=== PATIENT | male | born 1970 | race Caucasian/White ===

== ENCOUNTER → 2017-09-09 07:44 | Outpatient (CLI) | payer OTHER, SELFPAY ==
--- NOTE | 2017-09-09 07:50 | US_ITS ---
US abdomen complete COMPARISON: CT scan abdomen and pelvis 04/26/2010 HISTORY: Right upper right lower quadrant pain TECHNIQUE: Ultrasound abdomen complete FINDINGS: The pancreas is grossly normal in overall size and shows increased echogenicity suggesting fatty infiltration. The liver is normal in size and show scattered areas of fatty infiltration. The gallbladder is normal size and there may be a trace amount of biliary sludge but there are no gallstones seen. The common bile duct is normal caliber. Scanning in the area of the right lower quadrant shows ill-defined areas of increased echogenicity with ill-defined shadowing suggesting air within the bowel. The spleen is normal. The left kidney measures 9.6 x 5.7 x 6.3 cm. and appears normal with no hydronephrosis. Right kidney measures 11.0 x 4.1 x 5.6 cm. and appears normal as well. IMPRESSION: Trace amount biliary sludge along with diffuse fatty liver and possible that infiltration of the pancreas as well
== END ==
PROVIDERS: Family Provider Internal Medicine; PCP Internal Medicine; Visit Provider Internal Medicine
DX: R10.11 Right upper quadrant pain (principal); R10.31 Right lower quadrant pain
CPT/HCPCS: 76700

== ENCOUNTER 2020-10-29 15:01 | Emergency (ER) | payer OTHER, SELFPAY ==
[2020-10-29 15:09] VITALS: BP 128/87; PULSE 71; RESP 18; TEMP 36.6; O2SAT 96; BMI 34.7
--- NOTE | 2020-10-29 15:20 | HMH.EDUTC ---
[facility] [place] Disposition Clinical Impression: Sinusitis Qualifiers: Sinusitis location: unspecified location Chronicity: acute Recurrence: non-recurrent Qualified Code(s): J01.90 - Acute sinusitis, unspecified Disposition: Home, Self-Care Condition on Discharge: Good Instructions: DI for Sinusitis Additional Instructions: Drink plenty of fluids. Take tylenol or ibuprofen for pain or fever. Take the medications as directed. Follow up with your regular doctor. GO TO THE ER FOR ANY WORSENING SYMPTOMS Prescriptions: Amoxicillin/Potassium Clav [Augmentin 875-125 Tablet] 1 tab PO Q12H 10 Days #20 tab Transmission Status: Received by [id number] predniSONE [Prednisone 20mg Tab] 20 mg PO BID 4 Days #8 tab [facility]: [id number] Benzonatate [Tessalon Perle 100mg Cap] 100 mg PO TIDP PRN #30 cap PRN Reason: Cough Transmission Status[facility] Referrals: Jackson Chen [Primary Care Provider] - Time of Disposition: 15:38 Medical Decision Making - Medical Records Medical records reviewed: No: I reviewed the patient's medical records. - Campbell Inquiry Pt receiving controlled substance: No Vital Signs: 10/29/20 15:09 10/29/20 15:30 Temperature 97.9 F 97.9 F Temperature Source Oral Pulse Rate 71 Pulse Rate [Left] 71 Respiratory Rate 18 18 Blood Pressure 128/87 Blood Pressure [Right Arm] 128/87 Blood Pressure Mean [Right Arm] 100 02 Sat by Pulse Oximetry 96 Orders (Tests/Meds): ED MEDICATIONS Discontinued Medications Generic Name Dose Route Start Last Admin Trade Name Freq PRN Reason Stop Dose Admin Ceftriaxone Sodium 1 gm 10/29/20 15:20 10/29/20 15:26 Ceftriaxone 1gm Vial IM 10/29/20 15:21 1 gm ONCE ONE Administration Protocol Lidocaine HCl 0 ml 10/29/20 15:20 10/29/20 15:26 Lidocaine 1% 5ml Pf Vial IM 10/29/20 15:21 2.1 ml ONCE ONE Administration Methylprednisolone Sodium Succinate 125 mg 10/29/20 15:20 10/29/20 15:25 Methylprednisolone Sod Succ 125mg Vial IM 10/29/20 15:21 125 mg ONCE ONE Administration [facility] [place] HPI - General Stated complaint: SINUS PAIN,FACIAL Time Seen by Provider: 10/29/20 15:25 Mode of Arrival: Ambulatory Source of Information: Patient Limitations: No Limitations Description of Symptoms (Recalled from Triage Doc. by RN): Pt c/o sinus pressure under his eyes. HEENT Symptoms (Recalled from RN notes): No Resp Symptoms (Recalled from RN notes): Yes Skin Symptoms (Recalled from RN notes): No MS Symptoms (Recalled from RN notes): No Functional Status (Recalled from RN notes): wnl - History of Present Illness Provider Complaint: He states that he has had facial pressure and sinus pressure for the past 3 days. He has also had right ear pain with it. He denies any fever or chills. He states that he usually gets a sinus infection every spring and that what he thinks is going on now. He has been vaccinated against covid-19. - Related Data Previous Rx's Medication Instructions Recorded Azithromycin [Z-Alejandro 250mg Tab*] 250 mg PO UD DOSE PK #6 tab 06/09/19 Oseltamivir Phosphate [Tamiflu 75 mg PO BID #10 cap 06/09/19 75mg Capsule] Cyclobenzaprine HCl 5 mg PO Q8H PRN 10 Days #30 tab 08/23/19 [Cyclobenzaprine 5mg Tab] methylPREDNISolone [Medrol 4mg 4 mg PO DIRECTED #21 tab 08/23/19 tab] Amoxicillin/Potassium Clav 1 tab PO Q12H 10 Days #20 tab 10/29/20 [Augmentin 875-125 Tablet] Benzonatate [Tessalon Perle 100mg 100 mg PO TIDP PRN #30 cap 10/29/20 Cap] predniSONE [Prednisone 20mg 20 mg PO BID 4 Days #8 tab 10/29/20 Tab] Allergies Allergy/AdvReac Type Severity Reaction Status Date / Time No Known Allergies Allergy Verified 10/29/20 15:16 - Worker's Comp Is this a Worker's Comp case?: No [facility] History - Hepatitis A Screen Drug use history?: No High risk sexual behaviors?: No History of sexually transmitted infectio
[2020-10-29 15:30] VITALS: BP 128/87; PULSE 71; RESP 18; TEMP 36.6; O2SAT 96
== END 2020-10-29 15:42 | disposition home or self-care (01) ==
PROVIDERS: Emergency Provider Nurse Practitioner Family; PCP Internal Medicine
DX: J01.90 Acute sinusitis, unspecified (principal)
CPT/HCPCS: 90471; 99202; G0463

== ENCOUNTER 2021-05-10 11:42 | Emergency (ER) | payer OTHER, SELFPAY ==
[2021-05-10 12:25] VITALS: BP 140/91; PULSE 79; RESP 18; TEMP 36.8; O2SAT 97; BMI 36.3
--- NOTE | 2021-05-10 13:11 | HMH.EDUTC ---
[facility] [place] Disposition Clinical Impression: Bronchitis Sinusitis Qualifiers: Sinusitis location: unspecified location Chronicity: unspecified Qualified Code(s): J32.9 - Chronic sinusitis, unspecified Disposition: Home, Self-Care Condition on Discharge: Good Instructions: Sore Throat, Sinusitis, Acute Bronchitis, DI for Sinusitis Additional Instructions: ? Start antibiotic today. Be sure to complete entire prescription even if feeling better ? Monitor temp. Tylenol every 4 hours as needed and / or ibuprofen every 6 hours as needed ( As long as your primary care physician has told you that it ok to take both. For fever/aches/pains ER if no less than 101 despite Tylenol or Motrin ? Humidifier/vaporizer or hot steamy shower ? Inhaler every 4-6 hours as needed like we discussed. If unsure how to use it, ask pharmacist to demonstrate how. Should help open airways and improve cough, wheezing, and shortness of breath Follow up IMMEDIATELY for new or worsening of symptoms OR no noticeable improvement over the next 48-72 hours. 911 immediately for any life threatening symptoms such as chest pain or difficulty breathing Prescriptions: Benzonatate [Benzonatate 100mg cap] 100 mg PO Q8HP PRN #15 cap PRN Reason: Cough Transmission Status: Received by [facility] Azithromycin [Z-Alejandro 250mg Tab*] 250 mg PO UD DOSE PK #6 tab Transmission Status: Re[facility] by [facility] Referrals: Jackson Chen [Primary Care Provider] - As needed Forms: Work/School Release Time of Disposition: 13:45 Medical Decision Making - Campbell Inquiry Pt receiving controlled substance: No Campbell was queried for this patient: No Vital Signs: 05/10/21 12:25 05/10/21 13:34 Temperature 98.3 F 98.3 F Temperature Source Oral Pulse Rate 79 Pulse Rate [Right Brachial] 79 Respiratory Rate 18 18 Blood Pressure 140/91 H Blood Pressure [Right Arm] 140/91 H Blood Pressure Mean [Right Arm] 107 Blood Pressure Source [Right Arm] Automatic Cuff Blood Pressure Position [Right Arm] Sitting 02 Sat by Pulse Oximetry 97 Oxygen Delivery Method Room Air Orders (Tests/Meds): ED MEDICATIONS Discontinued Medications Generic Name Dose Route Start Last Admin Trade Name Freq PRN Reason Stop Dose Admin Ceftriaxone Sodium 1 gm 05/10/21 13:18 05/10/21 13:35 Ceftriaxone 1gm Vial IM 05/10/21 13:19 1 gm ONCE ONE Administration Lidocaine HCl 0 ml 05/10/21 13:18 05/10/21 13:35 Lidocaine 1% 5ml Pf Vial IM 05/10/21 13:19 2 ml ONCE ONE Administration Methylprednisolone Sodium Succinate 125 mg 05/10/21 13:18 05/10/21 13:35 Methylprednisolone Sod Succ 125mg Vial IM 05/10/21 13:19 125 mg ONCE ONE Administration [facility] [place] HPI - General Stated complaint: cough,sore throat Time Seen by Provider: 05/10/21 13:11 Mode of Arrival: Ambulatory Source of Information: Patient Limitations: No Limitations Description of Symptoms (Recalled from Triage Doc. by RN): PATIENT C/O PRODUCTIVE COUGH AND CHEST CONGESTION HEENT Symptoms (Recalled from RN notes): No Resp Symptoms (Recalled from RN notes): Yes Skin Symptoms (Recalled from RN notes): No MS Symptoms (Recalled from RN notes): No Functional Status (Recalled from RN notes): WNL - History of Present Illness Provider Complaint: Patient states that he has been having cough and congestion and at times he is able to cough up some mucous States that he gets bronchitis about this time every year and if he dont get it treated it turns into pneumonia on him so today when he was having the sinus pressure, drainage in back of his throat and cough he came in to get checked - Related Data Previous Rx's Medication Instructions Recorded Azithromycin [Z-Alejandro 250mg Tab*] 250 mg PO UD DOSE PK #6 tab 05/10/21 Benzonatate [Benzonatate 100mg 100 mg PO Q8HP PRN #15 cap 05/10/21 cap] Allergies Allergy/AdvReac Type Severity Reaction Status Date / Time No Known Allergies Allergy Vj
[2021-05-10 13:34] VITALS: BP 140/91; PULSE 79; RESP 18; TEMP 36.8; O2SAT 97
== END 2021-05-10 14:04 | disposition home or self-care (01) ==
PROVIDERS: Emergency Provider Nurse Practitioner; PCP Internal Medicine
DX: J20.9 Acute bronchitis, unspecified (principal); J32.9 Chronic sinusitis, unspecified
CPT/HCPCS: 96372; 99202; G0463

== ENCOUNTER → 2021-05-12 10:13 | Outpatient (CLI) | payer OTHER, SELFPAY | PROVIDERS: PCP Internal Medicine; Visit Provider Nurse Practitioner Family | DX: U07.1 COVID-19 (principal) | CPT/HCPCS: C9803; U0003; U0005 ==

== ENCOUNTER → 2021-05-17 07:56 | Outpatient (CLI) | payer OTHER, SELFPAY ==
[2021-05-17] VITALS (16 sets, daily range): BP systolic 132–169; BP diastolic 70–99; PULSE 67–77; RESP 18; O2SAT 94–98
== END ==
PROVIDERS: PCP Internal Medicine; Visit Provider Internal Medicine
DX: U07.1 COVID-19 (principal); Z23 Encounter for immunization
CPT/HCPCS: 96365

== ENCOUNTER → 2021-12-11 11:10 | Outpatient (CLI) | payer OTHER, SELFPAY ==
--- NOTE | 2021-12-11 11:14 | XR_ITS ---
FINAL REPORT CLINICAL HISTORY: BILAT.HIP PAIN FINDINGS: SINGLE VIEW PELVIS: A single view of the pelvis was obtained. There is no acute fracture or dislocation. Vizualized joint spaces are normally aligned. Soft tissues are unremarkable. IMPRESSION: No acute bony abnormality. Reviewed, Interpreted and Dictated by Karlo Hutton III, MD Transcribed by Elizabeth Fraser Authenticated and [facility]
--- NOTE | 2021-12-11 11:14 | XR_ITS ---
FINAL REPORT CLINICAL HISTORY: LOW BACK PAIN FINDINGS: LUMBAR SPINE 5 views of the lumbar spine were obtained. There is no evidence of fracture or dislocation. There is straightening of the normal lumbar curvature which could be due to positioning or muscle spasm. The vertebral alignment is normal. There is mild and moderate degenerative change with multilevel vertebral osteophytes and facet arthropathy. No paraspinous soft tissue abnormalities identified. IMPRESSION: Mild and moderate degenerative change Reviewed, Interpreted and Dictated by Karlo Hutton III, MD Transcribed by Elizabeth Fraser Authenticated and . [facility]
[2021-12-11 12:48] LABS: Basophils % 0.4 % (0.1-2.0); Eosinophils # 0.1 K/mm3 (0.0-0.4); Eosinophils % 1.3 % (0.1-12.0); Hematocrit 48.9 % (42.0-52.0); Hemoglobin 17.2 g/dL (14.1-18.0); Lymphocytes # 2.9 K/mm3 (0.7-4.5); Lymphocytes % 34.5 % (10-50); Mean Corpuscular HGB Conc 35.2 g/dL (31.8-35.4); Mean Corpuscular Volume 85.2 fl (80-94); Mean Platelet Volume 7.3 fl (7.4-10.4); Monocytes # 0.5 K/mm3 (0.1-1.0); Monocytes % 5.6 % (1.7-9.3); Neutrophils # 4.8 K/mm3 (1.8-7.8); Neutrophils % 58.2 % (37.0-80.0); Platelet Count 222 K/mm3 (142-424); Red Blood Count 5.74 M/mm3 (4.60-6.20); Red Cell Distribution Width 13.1 % (11.5-17.5); White Blood Count 8.3 K/mm3 (4.8-10.8)
[2021-12-11 13:24] LABS: Chloride 106 mmol/L (98-107); Potassium 4.2 mmoL/L (3.5-5.1); Sodium 140 mmol/L (136-145)
[2021-12-11 13:26] LABS: Alanine Aminotransferase 43 U/L (12-78); Aspartate Amino Transferase 38 U/L (17-59); Blood Urea Nitrogen 18 mg/dl (9-20); Estimated Glomerular Filt Rate 88 ml/min (>60); GFR (African American) 107 ML/MIN (>60)
[2021-12-11 13:27] LABS: Albumin Level 4.4 g/dl (3.5-5.0); Albumin/Globulin Ratio 1.8 (1.1-1.8); Alkaline Phosphatase 93 U/L (38-126); Anion Gap 15.2 mEq/L (5-15); Carbon Dioxide 23 mmol/L (22.0-30.0); Chol/HDL Ratio 2.8 (1-3.5); Cholesterol 159 mg/dl (140-200); Globulin 2.4 g/dL (1.3-3.2); Glucose 112 mg/dl (74-100); HDL Cholesterol 57 mg/dl (40-60); Total Protein,Serum 6.8 g/dl (6.3-8.2); Triglycerides 136 mg/dl (30-150); VLDL Cholesterol 27 mg/dL (0-40)
[2021-12-11 13:38] LABS: Direct LDL Cholesterol 77.38 mg/dL (100-129)
[2021-12-11 14:05] LABS: Prostate Specific Ag Screen 0.7 ng/ml (0.0-4.0)
== END ==
PROVIDERS: PCP Internal Medicine; Visit Provider Internal Medicine
DX: M54.50 Low back pain, unspecified (principal); M25.552 Pain in left hip; M25.551 Pain in right hip; E78.5 Hyperlipidemia, unspecified; E66.09 Other obesity due to excess calories; Z82.49 Family history of ischemic heart disease and other diseases of the circulatory system; Z83.3 Family history of diabetes mellitus; Z12.5 Encounter for screening for malignant neoplasm of prostate
CPT/HCPCS: 72110; 72170; 80053; 80061; 85025; G0103

== ENCOUNTER 2022-11-30 14:38 | Emergency (ER) | payer OTHER, SELFPAY ==
[2022-11-30 14:39] VITALS: BP 131/86; PULSE 89; RESP 20; TEMP 37; O2SAT 99; BMI 36.1
--- NOTE | 2022-11-30 15:14 | EXP.UTC ---
Discharge Plan Disposition Patient Disposition: Home, Self-Care Condition: Good Prescriptions Prescriptions: New azithromycin [azithromycin] 250 mg tablet 250 mg PO DIRECTED Qty: 6 0RF Rx Instructions: Take two (2) tablets on day #1, then one (1) tablet day #2 thru #5 Referrals Follow up/Referrals: Jackson Chen MD [Primary Care Provider] - See instructions Activity Restrictions/Add. Instructions Additional Instructions/Restrictions: Start antibiotic today. Be sure to complete entire prescription even if feeling better Tylenol and ibuprofen as needed for pain or fever Humidifier/vaporizer/hot steamy shower Follow-up with primary care. Follow-up immediately in the ER of the [facility] for new or worsening symptoms or no noticeable improvement over the next 48-72 hours. Stop smoking Inhaler every 4-6 hours as needed. Should help open airways improved cough, wheezing, shortness of breath Clinical Impressions Clinical Impression: Bronchitis Instructions Patient Instructions: DI for Acute Bronchitis Discharge [facility] [facility] [place] HPI General Stated complaint: Deep cough, back pain, chest congestion Mode of Arrival: Ambulatory Source of Information: Patient Limitations: No Limitations Time Seen by Provider: 11/30/22 15:14 Description of Symptoms (Recalled from Triage Doc. by RN): productive cough for about 2 weeks HEENT Symptoms (Recalled from RN notes): Yes Resp Symptoms (Recalled from RN notes): No Skin Symptoms (Recalled from RN notes): No MS Symptoms (Recalled from RN notes): No Functional Status (Recalled from RN notes): n/a History of Present Illness Provider Complaint: 51 yr old male presents for coughing up thick green sputum, has completed a round of amoxicillin and steroids Related Data Previous Rx's Medication Instructions Recorded azithromycin 250 mg tablet 250 mg PO DIRECTED #6 tabs 11/30/22 Allergies Allergy/AdvReac Type Severity Reaction Status Date / Time No Known Allergies Allergy Verified 11/30/22 14:59 Worker's Comp Is this a Worker's Comp case?: No [facility] Disclaimer: The information contained in this section may have been updated after the patient was seen, as this information can be updated by other users. 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 second hand exposure: No alcohol intake: never current occupational status: other Travel in the last 8 weeks: None ROS Obtained: Yes All systems reviewed & no additional complaints except as documented Constitutional Constitutional: Reports system reviewed and no additional complaints, except as documented and Reports as per HPI Eyes Eyes: Reports system reviewed and no additional complaints, except as documented ENT Ears, Nose, Mouth, and Throat: Reports system reviewed and no additional complaints, except as documented, Reports as per HPI, Reports nasal congestion, Reports nasal discharge and Reports post nasal drip Cardiovascular Cardiovascular: Reports system reviewed and no additional complaints, except as documented Respiratory Respiratory: Reports system reviewed and no additional complaints, except as documented, Reports as per HPI, Reports change in phlegm color, Reports chest congestion and Reports cough Musculoskeletal Musculoskeletal: Reports system reviewed and no additional complaints, except as documented Integumentary/Breasts Skin/Breast: Reports system reviewed and no additional complaints, except as documented Neurologic Neurologic: Reports system reviewed and no additional complaints, except as documented Endocrine Endocrine: Reports system reviewed and no additional complaints, except as documented Hematologic/Lymphatic Henatologic/Lymphatic: Reports system reviewed and no additional complaints, except as documented Allergic/Immunologic Allergic/Immunologic: Reports system reviewed and no additional complaints
[2022-11-30 15:27] VITALS: BP 131/86; PULSE 89; RESP 20; TEMP 37; O2SAT 99
== END 2022-11-30 15:27 | disposition home or self-care (01) ==
PROVIDERS: Emergency Provider Nurse Practitioner Family; PCP Internal Medicine
DX: J20.9 Acute bronchitis, unspecified (principal)
CPT/HCPCS: 96372; 99212; 99214; G0463

== ENCOUNTER 2022-12-08 16:06 | Emergency (ER) | payer OTHER, SELFPAY ==
[2022-12-08 16:07] VITALS: BP 134/91; PULSE 77; RESP 16; TEMP 36.8; O2SAT 96; BMI 34.8
--- NOTE | 2022-12-08 16:16 | XR_ITS ---
PROCEDURE INFORMATION: Exam: XR Thoracic Spine Exam date and time: 12/08/22 04:15 PM Age: 52 years old Clinical indication: Pain in thoracic spine; Other: Coughing leading to back pain; Additional info: Cough TECHNIQUE: Imaging protocol: Radiologic exam of the thoracic spine. Views: 3 views. COMPARISON: CR XR CHEST 2V 12/08/22 04:13 PM FINDINGS: Bones/joints: Degenerative changes. No acute fracture. Normal alignment. Soft tissues: Unremarkable. IMPRESSION: No acute findings.
--- NOTE | 2022-12-08 16:16 | XR_ITS ---
PROCEDURE INFORMATION: Exam: XR Chest Exam date and time: 12/08/22 04:13 PM Age: 52 years old Clinical indication: Patient HX: Cough since November 18. TECHNIQUE: Imaging protocol: Radiologic exam of the chest. Views: 2 views. COMPARISON: CR XR CHEST 2V 06/10/19 10:21 PM FINDINGS: Lungs: Unremarkable. No consolidation. Pleural spaces: Unremarkable. No pleural effusion. No pneumothorax. Heart/Mediastinum: Unremarkable. No cardiomegaly. Bones/joints: Unremarkable. IMPRESSION: No acute findings.
--- NOTE | 2022-12-08 16:31 | EXP.UTC ---
Discharge Plan Disposition Patient Disposition: Home, Self-Care Condition: Good Prescriptions Prescriptions: New prednisone 10 mg tablet 10 mg PO DIRECTED 9 Days Qty: 21 0RF Rx Instructions: Take 4 tablets daily for 3 days, then take 2 tablets daily for 3 days, then take 1 tablet daily for 3 days, then stop. benzonatate [benzonatate] 100 mg capsule 100 mg PO TIDP PRN (Reason: Cough) Qty: 30 0RF promethazine-DM 6.25-15 mg/5 mL Syrup 5 ml PO Q6H PRN (Reason: Cough) Qty: 240 0RF cefdinir 300 mg capsule 300 mg PO BID Qty: 20 0RF No Action azithromycin [azithromycin] 250 mg tablet 250 mg PO DIRECTED Qty: 6 0RF Rx Instructions: Take two (2) tablets on day #1, then one (1) tablet day #2 thru #5 Referrals Follow up/Referrals: Jackson Chen MD [Primary Care Provider] - See instructions Activity Restrictions/Add. Instructions Additional Instructions/Restrictions: Drink plenty of fluids. Take tylenol for pain or fever. Take the medications as directed. Follow up with your regular doctor. GO TO THE ER FOR ANY WORSENING SYMPTOMS Don't start the oral steroids until tomorrow, since you had the shot here today. The cough medication (promethazine dm) will make you drowsy, so don't drive or operate heavy machinery after taking it. It is more so that you can take it at bedtime and no cough for a few hours so you can sleep. The tessalon perles (benzonatate) are for your cough and they should not make you drowsy. Most people can take tessalon perles during the day to help with their cough. Clinical Impressions Clinical Impression: Acute bronchitis, Sinusitis Instructions Patient Instructions: Sinusitis, DI for Sinusitis, DI for Acute Bronchitis Discharge ED Provider: Rodríguez Hobson [facility] General Stated complaint: cough, phys refer to get Xrays Mode of Arrival: Ambulatory Source of Information: Patient Limitations: No Limitations Time Seen by Provider: 12/08/22 16:30 Description of Symptoms (Recalled from Triage Doc. by RN): States Dr. Chen' office sent him here for a chest and back xray. Complaint of being sick for 20 days. HEENT Symptoms (Recalled from RN notes): Yes Resp Symptoms (Recalled from RN notes): No Skin Symptoms (Recalled from RN notes): No MS Symptoms (Recalled from RN notes): No Functional Status (Recalled from RN notes): wnl Related Data Previous Rx's Medication Instructions Recorded azithromycin 250 mg tablet 250 mg PO DIRECTED #6 tabs 11/30/22 benzonatate 100 mg capsule 100 mg PO TIDP PRN Cough #30 caps 12/08/22 cefdinir 300 mg capsule 300 mg PO BID #20 caps 12/08/22 prednisone 10 mg tablet 10 mg PO DIRECTED 9 days #21 12/08/22 tabs promethazine-DM 6.25 mg-15 mg/5 mL 5 ml PO Q6H PRN Cough #240 mL 12/08/22 oral syrup Allergies Allergy/AdvReac Type Severity Reaction Status Date / Time No Known Allergies Allergy Verified 11/30/22 14:59 Worker's Comp Is this a Worker's Comp case?: No [facility] Disclaimer: The information contained in this section may have been updated after the patient was seen, as this information can be updated by other users. Social History Smoking Status: Never smoker second hand exposure: No alcohol intake: never current occupational status: other Travel in the last 8 weeks: None ROS Obtained: Yes All systems reviewed & no additional complaints except as documented Constitutional Constitutional: Reports poor appetite Eyes Eyes: Reports system reviewed and no additional complaints, except as documented ENT Ears, Nose, Mouth, and Throat: Reports as per HPI Cardiovascular Cardiovascular: Reports system reviewed and no additional complaints, except as documented and Denies chest pain Respiratory Respiratory: Denies shortness of breath, Reports chest congestion, Reports cough, Denies stridor and Denies wheezing Gastrointestinal
[2022-12-08 17:15] VITALS: BP 134/91; PULSE 77; RESP 16; TEMP 36.8; O2SAT 96
== END 2022-12-08 17:16 | disposition home or self-care (01) ==
PROVIDERS: Emergency Provider Nurse Practitioner Family; PCP Internal Medicine
DX: J20.9 Acute bronchitis, unspecified (principal); J01.90 Acute sinusitis, unspecified
CPT/HCPCS: 71046; 72070; 96372; 99212; 99214; G0463; J0696

== ENCOUNTER 2023-04-12 17:49 | Emergency (ER) | payer OTHER, SELFPAY ==
[2023-04-12 18:05] VITALS: BP 144/83; PULSE 77; RESP 18; TEMP 37.1; O2SAT 96; BMI 356.4
--- NOTE | 2023-04-12 18:11 | XR_ITS ---
PROCEDURE INFORMATION: Exam: XR Chest Exam date and time: 04/12/2023 6:10 PM Age: 52 years old Clinical indication: Cough TECHNIQUE: Imaging protocol: Radiologic exam of the chest. Views: 2 views. COMPARISON: CR XR CHEST 2V 12/08/2022 4:13 PM FINDINGS: Lungs: Calcified granuloma within the inferior right middle lobe. Pleural spaces: Unremarkable. No pleural effusion. No pneumothorax. Heart/Mediastinum: Normal. Bones/joints: Mild multilevel thoracic spine degenerative disc space narrowing minimal osteophyte formation. IMPRESSION: No acute cardiopulmonary abnormality.
--- NOTE | 2023-04-12 18:40 | EXP.UTC ---
Discharge Plan Disposition Patient Disposition: Home, Self-Care Condition: Good Referrals Follow up/Referrals: Jackson Chen MD [Primary Care Provider] - See instructions Activity Restrictions/Add. Instructions Additional Instructions/Restrictions: covid swab was sent to lab, call tomorrow for results. self isolate until test results are known to be negative No sign of a bacterial infection. Likely viral. Viruses can take 7-14 days to run their course. Nasal saline and bulb syringe or nose Puja to remove nasal drainage to help with nasal congestion. Hard to eat, drink, sleep with nasal congestion so important to keep this cleaned out. Monitor temp. Tylenol or Motrin as needed for pain or fever Encourage fluids, water, Gatorade, Powerade, Pedialyte if /toddler/child Warm salt water gargles Warm fluids Sore throat lozenges Sleep elevated Humidifier/vaporizer Follow-up immediately for new or worsening symptoms or no noticeable improvement over the next 48-72 hours. Clinical Impressions Clinical Impression: Upper respiratory infection Qualifiers: URI type: unspecified viral URI Qualified Code(s): J06.9 - Acute upper respiratory infection, unspecified Instructions Patient Instructions: DI for Viral Upper Respiratory Infection -- Adult Discharge ED Provider: Radha ([facility])[place] [facility] HPI General Stated complaint: kalina, SOA Mode of Arrival: Ambulatory Source of Information: Patient Limitations: No Limitations Time Seen by Provider: 04/12/23 18:40 Description of Symptoms (Recalled from Triage Doc. by RN): Pt thinks he has bronchitis. He stated that he has coughing, sneezing, no taste or smell. pt states he was treated almost 2 weeks ago for bronchitis HEENT Symptoms (Recalled from RN notes): Yes Resp Symptoms (Recalled from RN notes): No Skin Symptoms (Recalled from RN notes): No MS Symptoms (Recalled from RN notes): No Functional Status (Recalled from RN notes): n/a History of Present Illness Provider Complaint: 52 yr old male presents for cough, sneezing and loss of taste and smell. Related Data Allergies Allergy/AdvReac Type Severity Reaction Status Date / Time No Known Allergies Allergy Verified 04/12/23 18:35 Worker's Comp Is this a Worker's Comp case?: No [facility] Disclaimer: The information contained in this section may have been updated after the patient was seen, as this information can be updated by other users. 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 second hand exposure: No alcohol intake: never current occupational status: other Travel in the last 8 weeks: None ROS Obtained: Yes All systems reviewed & no additional complaints except as documented Constitutional Constitutional: Reports system reviewed and no additional complaints, except as documented and Reports as per HPI Eyes Eyes: Reports system reviewed and no additional complaints, except as documented ENT Ears, Nose, Mouth, and Throat: Reports system reviewed and no additional complaints, except as documented, Reports as per HPI, Reports nasal congestion, Reports nasal discharge and Reports sore throat Cardiovascular Cardiovascular: Reports system reviewed and no additional complaints, except as documented Respiratory Respiratory: Reports system reviewed and no additional complaints, except as documented, Reports as per HPI, Reports chest congestion and Reports cough Gastrointestinal Gastrointestingal: Reports system reviewed and no additional complaints, except as documented Musculoskeletal Musculoskeletal: Reports system reviewed and no additional complaints, except as documented Integumentary/Breasts Skin/Breast: Reports system reviewed and no additional complaints, except as documented Neurologic Neurologic: Reports system reviewed and no additional complaints, except as documented Endocrine Endocrine: Reports system reviewed and no additional complaints, e
[2023-04-12 19:18] VITALS: BP 0/0; PULSE 77; RESP 18; TEMP 37.1; O2SAT 96
== END 2023-04-12 19:18 | disposition home or self-care (01) ==
PROVIDERS: Emergency Provider Nurse Practitioner Family; PCP Internal Medicine
DX: J06.9 Acute upper respiratory infection, unspecified (principal); B34.9 Viral infection, unspecified; R43.9 Unspecified disturbances of smell and taste; R09.81 Nasal congestion; R05.9 Cough, unspecified
CPT/HCPCS: 71046; 87635; 96372; 99212; 99214; G0463

== ENCOUNTER 2023-05-24 17:43 | Emergency (ER) | payer OTHER, SELFPAY ==
[2023-05-24 17:55] VITALS: BP 176/99; PULSE 84; RESP 20; TEMP 37.1; O2SAT 97; BMI 34.8
--- NOTE | 2023-05-24 18:06 | EXP.UTC ---
Discharge Plan Disposition Patient Disposition: Home, Self-Care Condition: Good Prescriptions Prescriptions: New methylprednisolone 4 mg Tablets,Dose Pack 4 mg PO DIRECTED Qty: 21 0RF benzonatate [benzonatate] 100 mg capsule 100 mg PO TIDP PRN (Reason: Cough) Qty: 30 0RF amoxicillin-pot clavulanate 875-125 mg Tablet 1 tab PO Q12H Qty: 20 0RF guaifenesin [Mucinex] 600 mg tablet extended release 12hr 600 - 1,200 mg PO BIDP PRN (Reason: Congestion) Qty: 30 0RF Referrals Follow up/Referrals: Jackson Chen MD [Primary Care Provider] - See instructions Activity Restrictions/Add. Instructions Additional Instructions/Restrictions: Drink plenty of fluids. Take tylenol or ibuprofen for pain or fever. Take the medications as directed. Follow up with your regular doctor. GO TO THE ER FOR ANY WORSENING SYMPTOMS Don't start the oral steroids until tomorrow, since you had the shot here today. Clinical Impressions Clinical Impression: Sinusitis Instructions Patient Instructions: Sinusitis, DI for Sinusitis, Ceftriaxone Injection, Dexamethasone Injection Discharge ED Provider: Rodríguez Hobson [facility] [place] General Stated complaint: cough, sinus pressure Mode of Arrival: Ambulatory Source of Information: Patient Limitations: No Limitations Time Seen by Provider: 05/24/23 18:05 Description of Symptoms (Recalled from Triage Doc. by RN): PATIENT C/O SINUS PRESSURE, RUNNY NOSE AND COUGH WITH YELLOW MUCOUS SINCE LAST FRIDAY HEENT Symptoms (Recalled from RN notes): Yes Resp Symptoms (Recalled from RN notes): Yes Skin Symptoms (Recalled from RN notes): No MS Symptoms (Recalled from RN notes): No Functional Status (Recalled from RN notes): WNL History of Present Illness Provider Complaint: He states that for the past 5 days he has had sinus congestion, ear pain, cough and malaise. He denies any fever/chills/body aches. Related Data Previous Rx's Medication Instructions Recorded amoxicillin 875 mg-potassium 1 tab PO Q12H #20 tabs 05/24/23 clavulanate 125 mg tablet benzonatate 100 mg capsule 100 mg PO TIDP PRN Cough #30 caps 05/24/23 guaifenesin 600 mg tablet, 600 - 1,200 mg PO BIDP PRN 05/24/23 extended release 12 hr (Mucinex) Congestion #30 tabs methylprednisolone 4 mg tablets in 4 mg PO DIRECTED #21 tabs 05/24/23 a dose pack Allergies Allergy/AdvReac Type Severity Reaction Status Date / Time No Known Allergies Allergy Verified 04/12/23 18:35 Worker's Comp Is this a Worker's Comp case?: No PFS PFS Disclaimer: The information contained in this section may have been updated after the patient was seen, as this information can be updated by other users. Surgical History (Updated 05/24/23 @ 18:03 by Nathalie Pulliam RN) History of tonsillectomy History of tympanostomy tube placement Social History , [employer]) Smoking Status: Never smoker second hand exposure: No alcohol intake: never current occupational status: other Travel in the last 8 weeks: None ROS Obtained: Yes All systems reviewed & no additional complaints except as documented Constitutional Constitutional: Reports poor appetite Eyes Eyes: Reports system reviewed and no additional complaints, except as documented ENT Ears, Nose, Mouth, and Throat: Reports as per HPI Cardiovascular Cardiovascular: Reports system reviewed and no additional complaints, except as documented and Denies chest pain Respiratory Respiratory: Denies shortness of breath, Denies chest congestion, Reports cough, Denies stridor and Denies wheezing Gastrointestinal Gastrointestingal: Reports system reviewed and no additional complaints, except as documented; Denies abdominal pain, diarrhea or vomiting Musculoskeletal Musculoskeletal: Reports system reviewed and no additional complaints, except as documented and Denies arthralgias Integumentary/Breasts Skin/Breast: Reports syste
[2023-05-24 18:22] VITALS: BP 176/99; PULSE 84; RESP 20; TEMP 37.1; O2SAT 97
== END 2023-05-24 18:43 | disposition home or self-care (01) ==
PROVIDERS: Emergency Provider Nurse Practitioner Family; PCP Internal Medicine
DX: J01.90 Acute sinusitis, unspecified (principal); H66.93 Otitis media, unspecified, bilateral; R05.8 Other specified cough; R09.81 Nasal congestion; R53.81 Other malaise
CPT/HCPCS: 96372; 99212; 99214; G0463; J0696

== ENCOUNTER 2023-06-13 13:38 | Outpatient (CLI) | payer OTHER, SELFPAY ==
[2023-06-13 14:17] LABS: Basophils % 0.6 % (0.1-2.0); Eosinophils # 0.1 K/mm3 (0.0-0.4); Eosinophils % 1.6 % (0.1-12.0); Hematocrit 50.6 % (42.0-52.0); Hemoglobin 16.8 g/dL (14.1-18.0); Lymphocytes # 2.2 K/mm3 (0.7-4.5); Lymphocytes % 39.2 % (10-50); Mean Corpuscular HGB Conc 33.3 g/dL (31.8-35.4); Mean Corpuscular Volume 90.3 fl (80-94); Mean Platelet Volume 8.3 fl (7.4-10.4); Monocytes # 0.4 K/mm3 (0.1-1.0); Monocytes % 6.9 % (1.7-9.3); Neutrophils # 2.9 K/mm3 (1.8-7.8); Neutrophils % 51.6 % (37.0-80.0); Platelet Count 207 K/mm3 (142-424); Red Blood Count 5.61 M/mm3 (4.60-6.20); Red Cell Distribution Width 13.8 % (11.5-17.5); White Blood Count 5.6 K/mm3 (4.8-10.8)
[2023-06-13 14:35] LABS: Chloride 107 mmol/L (98-107); Sodium 140 mmol/L (136-145)
[2023-06-13 14:36] LABS: Potassium 4.1 mmoL/L (3.5-5.1)
[2023-06-13 14:38] LABS: Alanine Aminotransferase 31 U/L (12-78); Albumin Level 3.9 g/dl (3.5-5.0); Albumin/Globulin Ratio 1.7 (1.1-1.8); Alkaline Phosphatase 90 U/L (38-126); Anion Gap 12.1 mEq/L (5-15); Aspartate Amino Transferase 31 U/L (17-59); Bilirubin,Total 1.1 mg/dl (0.2-1.3); Blood Urea Nitrogen 16 mg/dl (9-20); Carbon Dioxide 25 mmol/L (22.0-30.0); Cholesterol 182 mg/dl (140-200); Estimated Glomerular Filt Rate 101 ml/min (>60); GFR (African American) 122 ML/MIN (>60); Globulin 2.3 g/dL (1.3-3.2); Total Protein,Serum 6.2 g/dl (6.3-8.2); Triglycerides 132 mg/dl (30-150); VLDL Cholesterol 26 mg/dL (0-40)
[2023-06-13 14:39] LABS: Calcium 8.5 mg/dl (8.4-10.2); Chol/HDL Ratio 4.6 (1-3.5); Glucose 97 mg/dl (74-100); HDL Cholesterol 40 mg/dl (40-60)
[2023-06-13 14:50] LABS: Direct LDL Cholesterol 103.59 mg/dL (100-129)
[2023-06-13 16:08] LABS: Prostate Specific Ag Screen 0.6 ng/ml (0.0-4.0)
== END 2023-06-13 23:59 ==
LOC: LAB.DROPOF 13:39
PROVIDERS: PCP Internal Medicine; Visit Provider Internal Medicine
DX: E78.5 Hyperlipidemia, unspecified (principal); B35.3 Tinea pedis; Z83.3 Family history of diabetes mellitus; Z12.5 Encounter for screening for malignant neoplasm of prostate; Z00.01 Encounter for general adult medical examination with abnormal findings
CPT/HCPCS: 80053; 80061; 85025; G0103

== ENCOUNTER 2023-10-09 21:52 | Emergency (ER) | payer OTHER, SELFPAY ==
[2023-10-09 21:54] VITALS: BP 155/92; PULSE 101; RESP 16; TEMP 36.9; O2SAT 98; BMI 34.7
[2023-10-09 22:06] LABS: Coronavirus 19, PCR Not Detected (NotDetected); Influenza A, PCR Not Detected (NotDetected); Influenza B, PCR Not Detected (NotDetected)
[2023-10-09] MEDS: DEXAMETHASONE 4MG TABLET 10 MG PO (22:30)
--- NOTE | 2023-10-09 22:48 | HMH.EDGENADL ---
Discharge Plan Disposition Patient Disposition: Home, Self-Care Chief Complaint: Upper Respiratory Infection Prescriptions Prescriptions: No Action methylprednisolone 4 mg Tablets,Dose Pack 4 mg PO DIRECTED Qty: 21 0RF benzonatate [benzonatate] 100 mg capsule 100 mg PO TIDP PRN (Reason: Cough) Qty: 30 0RF amoxicillin-pot clavulanate 875-125 mg Tablet 1 tab PO Q12H Qty: 20 0RF guaifenesin [Mucinex] 600 mg tablet extended release 12hr 600 - 1,200 mg PO BIDP PRN (Reason: Congestion) Qty: 30 0RF Referrals Follow up/Referrals: Jackson Chen MD [Primary Care Provider] - See instructions Activity Restrictions/Add. Instructions Additional Instructions/Restrictions: Call your family doctor to establish care for this visit to the emergency department and schedule follow-up within 48 hours to ensure improvement. If you have any worsening of your condition or any other concerning signs or symptoms, return to the emergency department or your primary care doctor for further evaluation. Take Tylenol 1000 mg every 6 hours (4 times daily) and ibuprofen 400 mg every 6 hours (4 times daily) as needed with food and water to prevent GI upset and kidney damage. Daily cetirizine (Zyrtec) or loratadine (Claritin), or other allergy medication can help with congestion symptoms. Clinical Impressions Clinical Impression: Acute viral syndrome, Fever Discharge ED Provider: Erik Benitez General Adult HPI General Chief complaint: Upper Respiratory Infection Stated complaint: Fever,chills,body aches Time Seen by Provider: 10/09/23 22:11 Mode of Arrival: Ambulatory Source of Information: Patient Limitations: No Limitations Description of Symptoms (Recalled from ER Triage Doc. by RN): pt c/o fever,cough,body aches,chills since friday History of Present Illness HPI narrative: Please note that above description of symptoms, in this electronic medical record under categorization of recalled from ER triage doctor by RN are reflective of an initial nursing assessment, however, is not reflective of my full history and physical exam that was personally taken and clarified. Consequentially, this preceding description of symptoms, which may include the patient's categorized chief complaint in the EMR, do not reflect my personal clinical impression, and the ultimate description of history of present illness and patient stated complaints should be deferred to this section of the note. Unless stated otherwise or congruent with this section of the note, additional signs, symptoms, or incongruence should be interpreted as inaccurate with my clinical impression. Related Data Previous Rx's Medication Instructions Recorded amoxicillin 875 mg-potassium 1 tab PO Q12H #20 tabs 05/24/23 clavulanate 125 mg tablet benzonatate 100 mg capsule 100 mg PO TIDP PRN Cough #30 caps 05/24/23 guaifenesin 600 mg tablet, 600 - 1,200 mg (1 - 2 x 600 mg) PO 05/24/23 extended release 12 hr (Mucinex) BIDP PRN Congestion #30 tabs methylprednisolone 4 mg tablets in 4 mg PO DIRECTED #21 tabs 05/24/23 a dose pack Allergies Allergy/AdvReac Type Severity Reaction Status Date / Time No Known Allergies Allergy Verified 04/12/23 18:35 [facility] Disclaimer: The information contained in this section may have been updated after the patient was seen, as this information can be updated by other users. Surgical History (Updated 05/24/23 @ 18:03 by Nathalie Pulliam RN) History of tympanostomy tube placement History of tonsillectomy Social History (Reviewed 04/12/23 @ 18:48 by Arias Garcia ([facility] [employer]) Smoking Status: Never smoker second hand exposure: No alcohol intake: never current occupational status: other Travel in the last 8 weeks: None ROS Obtained: Yes All systems reviewed & no additional complaints except as documented Physical Exam General General appearance: alert and in no apparent distress Head Head exam: atraumatic and normocephalic Eye Eye exam: Present normal appearance, PERRL and EOMI ENT ENT exam: Present mucous membranes moist Neck Neck exam: Present normal inspection, full ROM and trachea midline Respiratory Respiratory exam: Absent respiratory distress, wheezes, stridor, accessory muscle use or prolonged expiratory phase Cardiovascular Cardiovascular exam: Present normal rhythm Abdominal Exam Abdominal exam: Present soft; Absent distention, tenderness, guarding, rebound or rigidity Extremities Exam Extremities exam: Absent edema Neurological Exam Neurological exam: Present alert, oriented X3, CN II-XII intact and normal gait; Absent motor sensory deficit Skin Skin exam: Present warm and dry; Absent diaphoresis or erythema Medical Decision Making Medical Records Medical records reviewed: Yes I reviewed the patient's medical records. Campbell Inquiry Pt receiving controlled substance: No Campbell was queried for this patient: No Vital Signs: 10/09/23 21:54 Temperature 98.5 F Temperature Source Oral Pulse Rate [Right] 101 H Respiratory Rate 16 Blood Pressure [Right Arm] 155/92 H Blood Pressure Mean [Right Arm] 113 02 Sat by Pulse Oximetry 98 Lab Data Lab Results 10/09/23 22:00: SARS-CoV-2 (PCR) Not detected, Influenza A Untype (PCR) Not detected, Influenza Type B (PCR) Not detected Orders (Tests/Meds): ED MEDICATIONS Discontinued Medications Generic Name Dose Route Start Last Admin Trade Name Arnaldo PRN Reason Stop Dose Admin Dexamethasone 10 mg 10/09/23 22:15 10/09/23 22:30 Dexamethasone 4mg Tablet PO 10/09/23 22:16 10 mg ONCE ONE Administration ORDERS Category Date Time Status Rapid PCR Covid and Flu A/B Stat Lab 10/09/23 22:00 Completed Medical Decision Narrative: 52-year-old male no relevant medical history presenting with fevers. Patient states that he has been around numerous sick contacts with viral illnesses and strep throat. Denies pharyngitis, but has been intermittently having fevers. Fevers are responsive to Motrin. No other associated symptoms. History was obtained via conversation with patient. On arrival, patient hemodynamically stable, alert, oriented x4, appropriate, GCS 15, moving all extremities spontaneously, pupils equal and reactive to light. Full physical exam performed and significant for very well-appearing male in no acute distress. Afebrile, lungs are clear to auscultation, bilateral TMs within normal limits, pharyngeal erythema without tonsillitis or exudate. No lymphadenopathy. Differential includes acute viral syndrome. Patient given p.o. Decadron 10 mg for symptomatic control. COVID flu swab negative. I feel this likely represents other viral syndrome. No concern for strep pharyngitis. Swab was considered, but deemed unnecessary given physical exam, no lymphadenopathy, and no subjective pharyngitis. Because patient at baseline without signs or symptoms of clinical decompensation, deemed appropriate for discharge. Results were relayed to patient who voiced understanding and were agreeable to outpatient management and follow up. I discussed my clinical impression with patient and answered all questions. At this time, the evidence for any other entities in the differential is insufficient to warrant any further testing or ED observation. This was explained as well. Advisory was given that persistent or worsening symptoms require further evaluation. I confirmed the understanding of this discussion. Critical Care Critical Care Time Critical Care Time: No
[2023-10-09 23:10] VITALS: BP 134/75; PULSE 81; RESP 16; TEMP 36.9; O2SAT 98
== END 2023-10-09 23:10 | disposition home or self-care (01) ==
PROVIDERS: Emergency Provider Emergency Medicine; PCP Internal Medicine
DX: R05.9 Cough, unspecified (principal); R50.9 Fever, unspecified; B34.9 Viral infection, unspecified
CPT/HCPCS: 87636; 99283

== ENCOUNTER 2024-04-20 14:00 | Outpatient (CLI) | payer OTHER, SELFPAY | END 2024-04-20 23:59 | disposition home or self-care (01) | LOC: LAB.DROPOF 04-21 10:32 | PROVIDERS: PCP Internal Medicine; Visit Provider Internal Medicine | DX: R50.9 Fever, unspecified (principal); B34.9 Viral infection, unspecified | CPT/HCPCS: 87635 ==

== ENCOUNTER 2024-05-09 11:32 | Emergency (ER) | payer OTHER, SELFPAY ==
[2024-05-09 12:21] VITALS: BP 135/84; PULSE 75; RESP 20; TEMP 37.2; O2SAT 96; BMI 36.4
--- NOTE | 2024-05-09 12:25 | EXP.UTC ---
Discharge Plan Disposition Patient Disposition: Home, Self-Care Condition: Good Prescriptions Prescriptions: New benzonatate 100 mg capsule 100 mg PO TIDP PRN (Reason: Cough) Qty: 30 0RF methylprednisolone 4 mg Tablets,Dose Pack 4 mg PO DIRECTED 6 Days Qty: 21 0RF Rx Instructions: Take 1 pack as directed for 6 days amoxicillin-pot clavulanate 875-125 mg Tablet 1 tab PO Q12H Qty: 20 0RF Referrals Follow up/Referrals: Jackson Chen MD [Primary Care Provider] - See instructions Activity Restrictions/Add. Instructions Additional Instructions/Restrictions: Drink plenty of fluids. Take tylenol or ibuprofen for pain or fever. Take the medications as directed. Follow up with your regular doctor. GO TO THE ER FOR ANY WORSENING SYMPTOMS Don't start the oral steroids (medrol dose pack) until tomorrow since you had the shot here Clinical Impressions Clinical Impression: Sinusitis Instructions Patient Instructions: Sinusitis, DI for Sinusitis, Ceftriaxone Injection, Dexamethasone Injection Print Language Print Language: Portuguese Discharge ED Provider: Rodríguez Hobson [facility] [place] General Stated complaint: sinus congestion, cough, chills Mode of Arrival: Ambulatory Source of Information: Patient Time Seen by Provider: 05/09/24 12:25 Description of Symptoms (Recalled from Triage Doc. by RN): STATES SINUS INFECTION, JAFFE, CONGESTION, DRAINAGE HEENT Symptoms (Recalled from RN notes): Yes Resp Symptoms (Recalled from RN notes): Yes Skin Symptoms (Recalled from RN notes): No MS Symptoms (Recalled from RN notes): No Functional Status (Recalled from RN notes): WNL Related Data Previous Rx's ?Medication ?Instructions ?Recorded amoxicillin 875 mg-potassium 1 tab PO Q12H #20 tabs 05/09/24 clavulanate 125 mg tablet benzonatate 100 mg capsule 100 mg PO TIDP PRN Cough #30 caps 05/09/24 methylprednisolone 4 mg tablets in 4 mg PO DIRECTED 6 days #21 tabs 05/09/24 a dose pack Allergies Allergy/AdvReac Type Severity Reaction Status Date / Time No Known Allergies Allergy Verified 04/20/24 13:23 Worker's Comp Is this a Worker's Comp case?: No [facility] Disclaimer: The information contained in this section may have been updated after the patient was seen, as this information can be updated by other users. Surgical History History of tympanostomy tube placement History of tonsillectomy Social History Smoking Status: Never smoker second hand exposure: No alcohol intake: never current occupational status: other ROS Obtained: Yes All systems reviewed & no additional complaints except as documented Constitutional Constitutional: Reports poor appetite Eyes Eyes: Reports system reviewed and no additional complaints, except as documented ENT Ears, Nose, Mouth, and Throat: Reports as per HPI Cardiovascular Cardiovascular: Reports system reviewed and no additional complaints, except as documented and Denies chest pain Respiratory Respiratory: Denies shortness of breath, Denies chest congestion, Reports cough, Denies stridor and Denies wheezing Gastrointestinal Gastrointestingal: Reports system reviewed and no additional complaints, except as documented; Denies abdominal pain, diarrhea or vomiting Musculoskeletal Musculoskeletal: Reports system reviewed and no additional complaints, except as documented and Denies arthralgias Integumentary/Breasts Skin/Breast: Reports system reviewed and no additional complaints, except as documented and Denies rash Neurologic Neurologic: Denies paresthesias Allergic/Immunologic Allergic/Immunologic: Denies wheezing Physical Exam General General appearance: alert and in no apparent distress Eye Eye exam: Present normal appearance, PERRL and EOMI ENT ENT exam: Present mucous membranes moist and normal external ear exam Expanded ENT Exam External ear exam: Present normal external inspection TM/Canal exam: Bilateral TM: erythema and bulging Nose exam: Absent sinus tenderness Nasal speculum exam: Bilateral: normal Mouth exam: Present normal external inspection; Absent drooling Teeth exam: Present normal inspection Throat exam: Present tonsillar erythema and tonsillomegaly Neck Neck exam: Present normal inspection, full ROM and trachea midline; Absent tenderness, lymphadenopathy or thyromegaly Chest Chest inspection: Present normal inspection and symmetric chest wall rise; Absent tenderness or rash Respiratory Respiratory exam: Present normal lung sounds bilaterally; Absent respiratory distress, wheezes, stridor or accessory muscle use Cardiovascular Cardiovascular exam: Present regular rate, normal rhythm and normal heart sounds Abdominal Exam Abdominal exam: Present soft; Absent distention, tenderness, guarding, rebound or rigidity Extremities Exam Extremities exam: Present normal inspection, full ROM and normal capillary refill; Absent tenderness or calf tenderness Back Exam Back exam: Present normal inspection and full ROM; Absent tenderness Neurological Exam Neurological exam: Present alert and oriented X3 Psychiatric Psychiatric exam: Present normal affect and normal mood Skin Skin exam: Present warm, dry, intact and normal color Lymphatic Lymphatic Findings: no adenopathy Medical Decision Making Medical Records Medical records reviewed: No I reviewed the patient's medical records. Screening: Per USPSTF and CDC recommendations, given the prevalence of disease in our region, it is our hospital?s policy to screen for HIV and viral Hepatitis for all patients aged 18 and over and those with ongoing risk factors. Campbell Inquiry Pt receiving controlled substance: No Vital Signs: 05/09/24 12:21 Temperature 98.9 F Temperature Source Oral Pulse Rate [Left Radial] 75 Respiratory Rate 20 Blood Pressure [Left Arm] 135/84 Blood Pressure Mean [Left Arm] 101 02 Sat by Pulse Oximetry 96
[2024-05-09] MEDS: LIDOCAINE 1% 5ML PF VIAL IM (12:37)
[2024-05-09] MEDS: DEXAMETHASONE 4MG/ML 1ML VIAL 8 MG IM (12:37)
[2024-05-09] MEDS: cefTRIAXone 1GM VIAL 1 GM IM (12:37)
[2024-05-09 12:59] VITALS: BP 135/84; PULSE 75; RESP 20; TEMP 37.2
== END 2024-05-09 13:03 | disposition home or self-care (01) ==
PROVIDERS: Emergency Provider Nurse Practitioner Family; PCP Internal Medicine
DX: J32.9 Chronic sinusitis, unspecified (principal); R51.9 Headache, unspecified; R09.81 Nasal congestion; R05.9 Cough, unspecified; R68.83 Chills (without fever)
CPT/HCPCS: 96372; 99212; G0381; J0696; J1100

== ENCOUNTER 2024-06-06 10:22 | Emergency (ER) | payer OTHER, SELFPAY ==
[2024-06-06 11:50] VITALS: BP 125/86; PULSE 93; RESP 20; TEMP 37; O2SAT 97; BMI 35.5
--- NOTE | 2024-06-06 11:54 | ED_ITS ---
Discharge Plan Disposition Patient Disposition: Home, Self-Care Condition: Good Prescriptions Prescriptions: New prednisone 10 mg tablet 10 mg PO DIRECTED 9 Days Qty: 21 0RF Rx Instructions: Take 4 tablets daily for 3 days, then take 2 tablets daily for 3 days, then take 1 tablet daily for 3 days, then stop. benzonatate 100 mg capsule 100 mg PO TIDP PRN (Reason: Cough) Qty: 30 0RF cefdinir 300 mg capsule 300 mg PO BID Qty: 20 0RF Referrals Follow up/Referrals: Jackson Chen MD [Primary Care Provider] - See instructions Activity Restrictions/Add. Instructions Additional Instructions/Restrictions: Drink plenty of fluids. Take tylenol or ibuprofen for pain or fever. Take the medications as directed. Follow up with your regular doctor. GO TO THE ER FOR ANY WORSENING SYMPTOMS Don't start the oral steroids (medrol dose pack) until tomorrow since you had the shot here Clinical Impressions Clinical Impression: Sinusitis, Bronchitis Instructions Patient Instructions: Sinusitis, DI for Sinusitis Print Language Print Language: [place]ankan Discharge ED Provider: Rodríguez Hobson [facility] General Stated complaint: cough Mode of Arrival: Ambulatory Source of Information: Patient Time Seen by Provider: 06/06/24 11:53 Description of Symptoms (Recalled from Triage Doc. by RN): COUGH, DRAINAGE, SNEEZING HEENT Symptoms (Recalled from RN notes): Yes Resp Symptoms (Recalled from RN notes): Yes Skin Symptoms (Recalled from RN notes): No MS Symptoms (Recalled from RN notes): No Functional Status (Recalled from RN notes): WNL Related Data Previous Rx's ?Medication ?Instructions ?Recorded benzonatate 100 mg capsule 100 mg PO TIDP PRN Cough #30 caps 06/06/24 cefdinir 300 mg capsule 300 mg PO BID #20 caps 06/06/24 prednisone 10 mg tablet 10 mg PO DIRECTED 9 days #21 06/06/24 tabs Allergies Allergy/AdvReac Type Severity Reaction Status Date / Time No Known Allergies Allergy Verified 04/20/24 13:23 Worker's Comp Is this a Worker's Comp case?: No [facility] Disclaimer: The information contained in this section may have been updated after the patient was seen, as this information can be updated by other users. Surgical History History of tympanostomy tube placement History of tonsillectomy Social History Smoking Status: Never smoker second hand exposure: No alcohol intake: never current occupational status: other Travel in the last 8 weeks: None Have you lived/traveled outside [place] in past 30 days?: No Contact w/someone who lives/traveled outside [place] past 30 days?: No Exposure to someone with infectious disease in past 14 days?: No Do you have a fever (greater than 100.4 F or 38 C)?: No Have you tested positive for COVID-19: No Exposed to someone with COVID-19 in past 14 days?: No Do you have a sore throat?: No Do you have a cough?: Yes Do you have any weakness?: No Do you have any diarrhea?: No Are you experiencing any unusual bleeding?: No Do you have any muscle aches/pain?: No Do you have any abdominal pain?: No Are you experiencing loss of taste or smell?: No ROS Obtained: Yes All systems reviewed & no additional complaints except as documented Constitutional Constitutional: Reports poor appetite Eyes Eyes: Reports system reviewed and no additional complaints, except as documented ENT Ears, Nose, Mouth, and Throat: Reports as per HPI Cardiovascular Cardiovascular: Reports system reviewed and no additional complaints, except as documented and Denies chest pain Respiratory Respiratory: Denies shortness of breath, Denies chest congestion, Reports cough, Denies stridor and Denies wheezing Gastrointestinal Gastrointestingal: Reports system reviewed and no additional complaints, except as documented; Denies abdominal pain, diarrhea or vomiting Musculoskeletal Musculoskeletal: Reports system reviewed and no additional complaints, except as documented and Denies arthralgias Integumentary/Breasts Skin/Breast: Reports system reviewed and no additional complaints, except as documented and Denies rash Neurologic Neurologic: Denies paresthesias Allergic/Immunologic Allergic/Immunologic: Denies wheezing Physical Exam General General appearance: alert and in no apparent distress Head Head exam: atraumatic, normocephalic and normal inspection Eye Eye exam: Present normal appearance, PERRL and EOMI ENT ENT exam: Present mucous membranes moist and normal external ear exam Expanded ENT Exam TM/Canal exam: Bilateral TM: erythema and bulging Nose exam: Absent sinus tenderness Mouth exam: Present normal external inspection; Absent drooling Teeth exam: Present normal inspection Throat exam: Present tonsillar erythema, tonsillomegaly and tonsillar exudate Neck Neck exam: Present normal inspection, full ROM and trachea midline; Absent tenderness, meningismus or lymphadenopathy Chest Chest inspection: Present normal inspection and symmetric chest wall rise; Absent tenderness Respiratory Respiratory exam: Present normal lung sounds bilaterally; Absent respiratory distress, wheezes, stridor or accessory muscle use Cardiovascular Cardiovascular exam: Present regular rate and normal rhythm; Absent systolic murmur or diastolic murmur Abdominal Exam Abdominal exam: Present soft and normal bowel sounds; Absent distention, tenderness, guarding, rebound or rigidity Extremities Exam Extremities exam: Present normal inspection and normal capillary refill; Absent calf tenderness Back Exam Back exam: Present normal inspection and full ROM; Absent tenderness, CVA tenderness (R) or CVA tenderness (L) Neurological Exam Neurological exam: Present alert, oriented X3 and CN II-XII intact Psychiatric Psychiatric exam: Present normal affect and normal mood Skin Skin exam: Present warm, dry, intact and normal color Medical Decision Making Medical Records Medical records reviewed: No I reviewed the patient's medical records. Screening: Per USPSTF and CDC recommendations, given the prevalence of disease in our region, it is our hospital?s policy to screen for HIV and viral Hepatitis for all patients aged 18 and over and those with ongoing risk factors. Campbell Inquiry Pt receiving controlled substance: No Vital Signs: 06/06/24 11:50 Temperature 98.6 F Temperature Source Oral Pulse Rate [Left Brachial] 93 H Respiratory Rate 20 Blood Pressure [Left Arm] 125/86 Blood Pressure Mean [Left Arm] 99 02 Sat by Pulse Oximetry 97
[2024-06-06] MEDS: cefTRIAXone 1GM VIAL 1 GM IM (12:35)
[2024-06-06] MEDS: DEXAMETHASONE 4MG/ML 1ML VIAL 8 MG IM (12:36)
[2024-06-06] MEDS: LIDOCAINE 1% 5ML PF VIAL IM (12:36)
[2024-06-06 12:57] VITALS: BP 125/86; PULSE 93; RESP 20; TEMP 37
== END 2024-06-06 13:00 | disposition home or self-care (01) ==
PROVIDERS: Emergency Provider Nurse Practitioner Family; PCP Internal Medicine
DX: J40 Bronchitis, not specified as acute or chronic (principal); J32.9 Chronic sinusitis, unspecified; R05.9 Cough, unspecified; R06.7 Sneezing; R63.8 Other symptoms and signs concerning food and fluid intake
CPT/HCPCS: 96372; 99212; G0381; J0696; J1100

== ENCOUNTER 2024-06-17 15:39 | Outpatient (CLI) | payer OTHER, SELFPAY ==
--- NOTE | 2024-06-17 15:44 | XR_ITS ---
PROCEDURE INFORMATION: Exam: XR Chest Exam date and time: 06/17/2024 3:51 PM Age: 53 years old Clinical indication: Cough; Additional info: Persisting cough, mid back pain TECHNIQUE: Imaging protocol: Radiologic exam of the chest. Views: 2 views. COMPARISON: CR XR CHEST 2V 04/12/2023 6:10 PM FINDINGS: Lungs: Unremarkable. No consolidation. Pleural spaces: Unremarkable. No pleural effusion. No pneumothorax. Heart/Mediastinum: Unremarkable. No cardiomegaly. Bones/joints: Unremarkable. IMPRESSION: No acute findings.
== END 2024-06-17 23:59 | disposition home or self-care (01) ==
LOC: RAD 15:40
PROVIDERS: PCP Internal Medicine; Visit Provider Internal Medicine
DX: J45.991 Cough variant asthma (principal); R05.3 Chronic cough; M54.6 Pain in thoracic spine
CPT/HCPCS: 71046

== ENCOUNTER 2024-07-02 22:55 | Emergency (ER) | payer OTHER, SELFPAY ==
[2024-07-02 22:57] VITALS: BP 140/100; PULSE 88; RESP 16; TEMP 37.1; O2SAT 97; BMI 34.8
--- NOTE | 2024-07-02 23:09 | XR_ITS ---
PROCEDURE INFORMATION: Exam: XR Chest Exam date and time: 07/02/2024 11:21 PM Age: 53 years old Clinical indication: Smoker's cough; Additional info: Persistent cough with 1mo of respiratory illness TECHNIQUE: Imaging protocol: Radiologic exam of the chest. Views: 2 views. COMPARISON: CR XR CHEST 2V 06/17/2024 3:51 PM FINDINGS: Lungs: Unremarkable. No consolidation. Pleural spaces: Unremarkable. No pleural effusion. No pneumothorax. Heart/Mediastinum: Unremarkable. No cardiomegaly. Bones/joints: Unremarkable. IMPRESSION: No acute findings.
--- NOTE | 2024-07-02 23:11 | ECG_ITS ---
APPROVED REPORT Exam: Resting ECG HR:77 bpm ECG Measurements Heart Rate 77 AXES MD 133 P 62 QRSd 114 QRS 78 QT 372 T 50 QTc 404 Conclusion SINUS RHYTHM POSSIBLE RIGHT VENTRICULAR HYPERTROPHY [SOME/ALL OF: PROMINENT R IN V1, LATE TRANSITION, RAD, JULIA, SSS] No STEMI Electronically signed by : DAY ESPINOZA, 07/03/2024 06:45:26
--- NOTE | 2024-07-02 23:12 | ED_ITS ---
Discharge Plan Disposition Patient Disposition: Home, Self-Care Condition: Good Prescriptions Prescriptions: New doxycycline hyclate 100 mg capsule 100 mg PO BID 7 Days Qty: 14 0RF dextromethorphan-guaifenesin 30-600 mg tablet extended release 12 hr 1 tab PO BID PRN (Reason: cough) Qty: 10 0RF No Action prednisone 10 mg tablet 10 mg PO DIRECTED Qty: 32 0RF Rx Instructions: see taper instructions: 4 tabs po qam x 5 days; 3 tabs po qam x 2 days; 2 tabs po qam x 2 days; 1 tab po qam x 2 days; then stop albuterol sulfate 90 mcg/actuation HFA aerosol inhaler 2 puff inhalation Q4-6H PRN (Reason: shortness of breath or wheezing) Qty: 8.5 2RF benzonatate 100 mg capsule 100 mg PO TIDP PRN (Reason: Cough) Qty: 30 0RF Referrals Follow up/Referrals: Jackson Chen MD [Primary Care Provider] - See instructions Activity Restrictions/Add. Instructions Additional Instructions/Restrictions: You were evaluated in the ER and are appropriate for discharge at this time. Continue taking your albuterol inhaler if needed. STOP the benzonatate. START the doxycycline (antibiotic). Do not skip doses, do not stop taking this early. Also start taking the dextromethorphan guaifenesin tablets. This should help with your cough. Additionally, you can take Claritin or Zyrtec daily to help with postnasal drip. Follow-up with your primary care doctor for reevaluation in a few days, return to the ER with new, worsening, or otherwise concerning symptoms. Clinical Impressions Clinical Impression: Persistent cough Print Language Print Language: Kazakh Discharge ED Provider: Lia Rick General Adult HPI General Chief complaint: Upper Respiratory Infection Stated complaint: cough, wheezy, back pain Time Seen by Provider: 07/02/24 23:00 History of Present Illness HPI narrative: 53-year-old male with no chronic medical problems, no daily medications, no known drug allergies presents to the ER with persistent cough. Patient reports he was sick at the end of May but had negative flu test. He states he is had multiple rounds of steroids and antibiotics from [facility] and has also visited his primary care doctor. Patient reports he finished his last course of steroids 5 days ago. He reports he is still having a semiproductive cough. He states he feels drainage in his throat but is not always able to get it up. He states he has diffuse back pain with coughing but no pain at rest. He denies shortness of breath or difficulty breathing, no pleuritic pain, he states he has had temperature up to 100 at home intermittently but no documented fever over 100.4. He is not currently on any antibiotics. Reportedly his PCP did a chest x-ray over a week ago and it was negative at that time. Patient is concerned he has possibly developed pneumonia but is also just concerned that he has persistent cough. He denies tobacco use or illicit drug use, reports occasional social drinking. Related Data Previous Rx's ?Medication ?Instructions ?Recorded benzonatate 100 mg capsule 100 mg PO TIDP PRN Cough #30 caps 06/06/24 albuterol sulfate 90 mcg/actuation 2 puff inhalation Q4-6H PRN 06/17/24 aerosol inhaler shortness of breath or wheezing #8.5 grams prednisone 10 mg tablet 10 mg PO DIRECTED #32 tabs 06/17/24 doxycycline hyclate 100 mg capsule 100 mg PO BID 7 days #14 caps 07/02/24 dextromethorphan-guaifenesin 30 1 tab PO BID PRN cough #10 tabs 07/03/24 mg-600 mg tablet extended hr Allergies Allergy/AdvReac Type Severity Reaction Status Date / Time No Known Allergies Allergy Verified 06/17/24 15:28 [facility] Disclaimer: The information contained in this section may have been updated after the patient was seen, as this information can be updated by other users. Surgical History History of tympanostomy tube placement History of tonsillectomy Social History Smoking Status: Never smoker second hand exposure: No alcohol intake: never current occupational status: other Travel in the last 8 weeks: None Have you lived/traveled outside [place] in past 30 days?: No Contact w/someone who lives/traveled outside US past 30 days?: No Exposure to someone with infectious disease in past 14 days?: No Do you have a fever (greater than 100.4 F or 38 C)?: No Have you tested positive for COVID-19: No Exposed to someone with COVID-19 in past 14 days?: No Do you have a sore throat?: No Do you have a cough?: Yes Do you have any weakness?: Yes Do you have any diarrhea?: No Are you experiencing any unusual bleeding?: No Do you have any muscle aches/pain?: No Do you have any abdominal pain?: No Are you experiencing loss of taste or smell?: No Other Medical History Have you received the Flu Vaccine for this season: Yes Have you received the Pneumonia Vaccine: No ROS Obtained: Yes Systems reviewed as appropriate & no additional complaints except as documented Per HPI Physical Exam General General appearance: alert and in no apparent distress Head Head exam: atraumatic and normocephalic Eye Eye exam: Present PERRL and EOMI ENT ENT exam: Present mucous membranes moist Neck Neck exam: Present normal inspection and full ROM Chest Chest inspection: Present symmetric chest wall rise; Absent tenderness Respiratory Respiratory exam: Present other (Saturating 98% on room air); Absent normal lung sounds bilaterally (bilateral rhonchi at the bases, move with cough), respiratory distress, wheezes or stridor Cardiovascular Cardiovascular exam: Present regular rate and normal rhythm Abdominal Exam Abdominal exam: Present soft; Absent distention or tenderness Extremities Exam Extremities exam: Present full ROM and edema (Trace bilateral lower extremity pitting edema but patient reports he stands on concrete all day) Neurological Exam Neurological exam: Present alert and oriented X3; Absent motor sensory deficit Psychiatric Psychiatric exam: Present normal affect and normal mood Skin Skin exam: Present warm and dry Medical Decision Making Medical Records Medical records reviewed: Yes I reviewed the patient's medical records. Screening: Per USPSTF and CDC recommendations, given the prevalence of disease in our region, it is our hospital?s policy to screen for HIV and viral Hepatitis for all patients aged 18 and over and those with ongoing risk factors. MR Comment: Chest x-ray from 06/17/2024 was reviewed and does not demonstrate any acute findings. I reviewed Dr. Chen's note from 06/17/2024 and his physical exam is consistent with what patient presents with today. He was diagnosed with cough variant asthma and given an albuterol inhaler. [place] Inquiry Pt receiving controlled substance: No Vital Signs: 07/02/24 22:57 07/03/24 00:23 07/03/24 00:28 Temperature 98.7 F 98.7 F 101.0 F H Temperature Source Temporal Artery Scan Rectal Pulse Rate 88 164 H Pulse Rate [Right] 88 Respiratory Rate 16 20 34 H Blood Pressure 120/91 H 000/00 L Blood Pressure [Right Arm] 140/100 H Blood Pressure Mean [Right Arm] 113 02 Sat by Pulse Oximetry 97 Oxygen Delivery Method Room Air Room Air Room Air Lab Data Lab Results 07/02/24 23:06: WBC 10.0, RBC 5.11, Hgb 14.5, Hct 44.5, MCV 87.1, MCH 28.4, MCHC 32.6, RDW 13.6, Plt Count 215, MPV 9.4, Neut % (Auto) 56.0, Lymph % (Auto) 32.1, [place] % (Auto) 8.6, Eos % (Auto) 2.2, Baso % (Auto) 0.4, Neut # (Auto) 5.6, Lymph # (Auto) 3.2, [place] # (Auto) 0.9, Eos # (Auto) 0.2, Baso # (Auto) 0.0, Sodium 141, Potassium 3.7, Chloride 107, Carbon Dioxide 25, Anion Gap 12.7, BUN 24 H, Creatinine 0.70, Estimated Creat Clear 191, Estimated GFR 117, Est GFR ( Amer) 142, Glucose 124 H, Calcium 8.3 L, Total Bilirubin 0.3, AST 29, ALT 30, Alkaline Phosphatase 125, Troponin I < 0.01, NT-Pro-B Natriuret Pep < 20.0, T otal Protein 6.1 L, Albumin 3.8, Globulin 2.3, Albumin/Globulin Ratio 1.7, HCV Ab TRI w/Rflx PCR Qn Negative, HIV Ag/Ab Combo Qual Negative 07/02/24 23:06 07/02/24 23:06 Orders (Tests/Meds): ED MEDICATIONS Discontinued Medications Generic Name Dose Route Start Last Admin Trade Name Freq PRN Reason Stop Dose Admin Doxycycline Hyclate 100 mg 07/03/24 00:03 07/03/24 00:05 Doxycycline Hycl 100 Mg Tablet PO 07/03/24 00:04 100 mg ONCE ONE Administration Lidocaine HCl 5 ml 07/02/24 23:09 07/02/24 23:43 Lidocaine 2% 5ml Pf Vial IH 07/02/24 23:10 5 ml ONCE ONE Administration Sodium Chloride 3 ml 07/02/24 23:11 07/02/24 23:43 Sodium Chloride 3% 15ml Neb IH 07/02/24 23:12 3 ml ONCE ONE Administration ORDERS Category Date Time Status CXR 2 view (NOT portable) [XR chest 2V] Stat Exams 07/02/24 23:09 Completed BNP [NT Pro Brain Natriuretic Pep.] Stat Lab 07/02/24 23:06 Completed CBC w/Auto Diff [Complete Blood Count Auto Diff] Stat Lab 07/02/24 23:06 Completed CMP [Comprehensive Metabolic Panel] Stat Lab 07/02/24 23:06 Completed HIV Combo Stat Lab 07/02/24 23:06 Completed Hepatitis C Ab Qual. W/ RFX Stat Lab 07/02/24 23:06 Completed Mini Respiratory Panel Stat Lab 07/02/24 23:06 Received Trop I [Troponin I] Stat Lab 07/02/24 23:06 Completed Troponin I Q3H Lab 07/03/24 02:15 Ordered Troponin I Q3H Lab 07/03/24 05:15 Ordered Medical Decision Narrative: In summary, this 53-year-old male presents to the emergency department today with cough. On initial evaluation patient is hemodynamically stable, afebrile, saturating 98% on room air, physical exam is most notable for rhonchi at the bilateral lung bases but these moved with cough. Differential diagnosis includes but is not limited to viral syndrome, pneumonia, bronchitis, with patient's persistence of symptoms I considered cardiac etiology though I have lower suspicion for this, postnasal drip. Based on these concerns, I ordered chest x- ray, cardiac workup, viral swab. ECG personally interpreted demonstrates sinus rhythm rate 77, normal axis, normal MD and QTc, no STEMI. Patient received nebulized lidocaine and saline for treatment of cough initially. Labs personally reviewed demonstrate no leukocytosis, nonactionable CMP, troponin undetectably low, BNP undetectably low. Given patient's duration of symptoms I do not believe serial troponins are indicated at this time since this should be elevated if his symptoms were cardiac in nature. XR personally interpreted demonstrates no lobar infiltrate however compared to chest x-ray from 06/17/2024, I believe patient has slight increase in parenchymal changes of the right lung. Therefore with patient's ongoing symptoms I am going to treat this like possible atypical pneumonia. Patient received doxycycline. I prescribed doxycycline for outpatient management, also prescribed guaifenesin dextromethorphan. Patient was given instructions on symptomatic management, follow up instructions, and return precautions for the emergency department. Patient indicated understanding and was discharged in stable condition. Critical Care Critical Care Time Critical Care Time: No
[2024-07-02 23:19] LABS: Basophils % 0.4 % (0.1-2.0); Coronavirus 19, PCR Not Detected (NotDetected); Eosinophils # 0.2 K/mm3 (0.0-0.4); Eosinophils % 2.2 % (0.1-12.0); Hematocrit 44.5 % (42.0-52.0); Hemoglobin 14.5 g/dL (14.1-18.0); Human Rhinovirus Not Detected (NotDetected); Influenza A, PCR Not Detected (NotDetected); Influenza B, PCR Not Detected (NotDetected); Lymphocytes # 3.2 K/mm3 (0.7-4.5); Lymphocytes % 32.1 % (10-50); Mean Corpuscular HGB Conc 32.6 g/dL (31.8-35.4); Mean Corpuscular Hemoglobin 28.4 pg (27.0-31.2); Mean Corpuscular Volume 87.1 fl (80-94); Mean Platelet Volume 9.4 fl (7.4-10.4); Monocytes # 0.9 K/mm3 (0.1-1.0); Monocytes % 8.6 % (1.7-9.3); Neutrophils # 5.6 K/mm3 (1.8-7.8); Platelet Count 215 K/mm3 (142-424); Red Blood Count 5.11 M/mm3 (4.60-6.20); Red Cell Distribution Width 13.6 % (11.5-17.5); Respiratory Syncytial Virus Not Detected (NotDetected)
[2024-07-02 23:26] LABS: Albumin Level 3.8 g/dl (3.5-5.0); Chloride 107 mmol/L (98-107); Potassium 3.7 mmoL/L (3.5-5.1); Sodium 141 mmol/L (136-145)
[2024-07-02 23:28] LABS: Blood Urea Nitrogen 24 mg/dl (9-20)
[2024-07-02 23:29] LABS: Alanine Aminotransferase 30 U/L (12-78); Albumin/Globulin Ratio 1.7 (1.1-1.8); Alkaline Phosphatase 125 U/L (38-126); Anion Gap 12.7 mEq/L (5-15); Aspartate Amino Transferase 29 U/L (17-59); Bilirubin,Total 0.3 mg/dl (0.2-1.3); Calcium 8.3 mg/dl (8.4-10.2); Carbon Dioxide 25 mmol/L (22.0-30.0); Creatinine Clearance Estimated 191 mL/min (50-200); Estimated Glomerular Filt Rate 117 ml/min (>60); GFR (African American) 142 ML/MIN (>60); Globulin 2.3 g/dL (1.3-3.2); Glucose 124 mg/dl (74-100); Total Protein,Serum 6.1 g/dl (6.3-8.2)
[2024-07-02] MEDS: LIDOCAINE 2% 5ML PF VIAL 5 ML IH (23:43)
[2024-07-02] MEDS: SODIUM CHLORIDE 3% 15ML NEB 3 ML IH (23:43)
[2024-07-02 23:45] LABS: Troponin I < 0.01 ng/ml (0.00-0.034)
[2024-07-02 23:46] LABS: NT Pro Brain Natriuretic Pep. < 20.0 pg/mL (0-125)
[2024-07-03] MEDS: DOXYCYCLINE HYCL 100 MG TABLET PO (00:05)
[2024-07-03 00:18] LABS: HIV Combo NEGATIVE (Negative)
[2024-07-03 00:23] VITALS: BP 120/91; PULSE 88; RESP 20; TEMP 37.1; O2SAT 97
[2024-07-03 00:26] LABS: Hepatitis C Ab Qual. W/ RFX NEGATIVE (Negative)
[2024-07-03 00:28] VITALS: BP 000/00; PULSE 164; RESP 34; TEMP 38.3; O2SAT 100
== END 2024-07-03 00:29 | disposition home or self-care (01) ==
PROVIDERS: Emergency Provider Emergency Medicine; PCP Internal Medicine
DX: R05.3 Chronic cough (principal); R50.9 Fever, unspecified; M54.9 Dorsalgia, unspecified
CPT/HCPCS: 71046; 80053; 83880; 84484; 85025; 86803; 87389; 87631; 93005; 99284

== ENCOUNTER 2024-08-31 07:04 | Outpatient (CLI) | payer OTHER, SELFPAY ==
--- NOTE | 2024-08-31 07:30 | US_ITS ---
FINAL REPORT TECHNIQUE: Sonographic images of the right upper quadrant were obtained. CLINICAL HISTORY: Right upper quadrant pain after meals COMPARISON: None FINDINGS: PANCREAS: Unremarkable. LIVER: Homogeneous. No focal hepatic lesion. No intrahepatic biliary ductal dilatation. GALLBLADDER: No gallstones. No gallbladder wall thickening or pericholecystic fluid. COMMON DUCT: 5 mm. Normal for age. RIGHT KIDNEY: The right kidney measures 10.7 cm. There is no hydronephrosis, mass, or stone. FREE FLUID: None. IMPRESSION: Unremarkable ultrasound of the right upper quadrant. Reviewed, Interpreted and Dictated by Aurea Lucas MD Transcribed by Taylor Maradiaga Authenticated and [facility]
--- NOTE | 2024-08-31 08:00 | US_ITS ---
FINAL REPORT CLINICAL HISTORY: Swelling and discomfort left mid upper extremity-palp area FINDINGS: Limited sonographic images were obtained of the soft tissues of the left upper arm at the area of interest. No fluid collection is identified. There are 2 small hypoechoic abnormalities at the area of interest. The largest measures 5 mm. These are nonspecific and could represent very small lipomas. Otherwise, no mass identified. IMPRESSION: Possible very small lipomas at the area of interest. Reviewed, Interpreted and Dictated by Aurea Lucas MD Transcribed by Kenyatta Chappell Authenticated and [facility]
[2024-08-31 09:00] LABS: Alanine Aminotransferase 24 U/L (12-78); Albumin Level 4.2 g/dl (3.5-5.0); Albumin/Globulin Ratio 2.2 (1.1-1.8); Alkaline Phosphatase 81 U/L (38-126); Aspartate Amino Transferase 25 U/L (17-59); Bilirubin,Total 0.9 mg/dl (0.2-1.3); Blood Urea Nitrogen 14 mg/dl (9-20); Calcium 9.3 mg/dl (8.4-10.2); Carbon Dioxide 29 mmol/L (22.0-30.0); Chloride 106 mmol/L (98-107); Chol/HDL Ratio 2.9 (1-3.5); Cholesterol 137 mg/dl (140-200); Estimated Glomerular Filt Rate 117 ml/min (>60); GFR (African American) 142 ML/MIN (>60); Globulin 1.9 g/dL (1.3-3.2); Glucose 112 mg/dl (74-100); HDL Cholesterol 48 mg/dl (40-60); Sodium 139 mmol/L (136-145); Total Protein,Serum 6.1 g/dl (6.3-8.2); Triglycerides 87 mg/dl (30-150); VLDL Cholesterol 17 mg/dL (0-40)
[2024-08-31 09:12] LABS: Direct LDL Cholesterol 64.54 mg/dL (100-129)
[2024-08-31 09:20] LABS: Hemoglobin A1C 5.1 % (4.0-6.0)
[2024-08-31 09:31] LABS: Prostate Specific Ag Screen 0.6 ng/ml (0.0-4.0)
[2024-08-31 09:35] LABS: Ferritin 244 ng/ml (17.9-464)
== END 2024-08-31 23:59 | disposition home or self-care (01) ==
LOC: RAD 07:05
PROVIDERS: PCP Internal Medicine; Visit Provider Internal Medicine
DX: R10.11 Right upper quadrant pain (principal); D36.7 Benign neoplasm of other specified sites; R73.02 Impaired glucose tolerance (oral); G25.81 Restless legs syndrome; E78.5 Hyperlipidemia, unspecified; E66.9 Obesity, unspecified; Z68.35 Body mass index [BMI] 35.0-35.9, adult; Z12.5 Encounter for screening for malignant neoplasm of prostate
CPT/HCPCS: 36415; 76705; 76882; 80053; 80061; 82728; 83036; G0103

== ENCOUNTER 2024-12-20 15:17 | Outpatient (CLI) | payer OTHER, SELFPAY ==
--- NOTE | 2024-12-20 15:30 | CT_ITS ---
FINAL REPORT TECHNIQUE: Multiple axial CT sections were performed through the face without IV contrast. Coronal reconstruction images were performed. This study was performed with techniques to keep radiation doses as low as reasonably achievable (ALARA). Individualized dose reduction techniques using automated exposure control or adjustment of mA and/or kV according to the patient's size were employed. CLINICAL HISTORY: chronic sinustitis COMPARISON: none FINDINGS: Facial Bones: No displaced facial bone fractures. Paranasal sinuses, nasal passages and mastoid air cells: Lobular mucosal thickening is noted in the bilateral maxillary sinuses measuring up to 12 mm on the left and 5 mm on the right. There are no air-fluid levels to indicate acute sinusitis. Remaining paranasal sinuses are clear. There is nasal septal deviation to the right measuring 5 mm. The ostiomeatal complexes are normal. Bony orbits and optic globes: No orbital fractures. The optic globes are unremarkable and symmetric. Soft tissues: No significant soft tissue swelling. IMPRESSION: Mild mucoperiosteal thickening of the bilateral maxillary sinuses without acute sinusitis. Reviewed, Interpreted and Dictated by Marcia Fabian MD Transcribed by Kenyatta Chappell Authenticated and [facility][1]
== END 2024-12-20 23:59 | disposition home or self-care (01) ==
LOC: RAD 15:17
PROVIDERS: PCP Internal Medicine; Visit Provider Nurse Practitioner
DX: R93.0 Abnormal findings on diagnostic imaging of skull and head, not elsewhere classified (principal); J32.9 Chronic sinusitis, unspecified
CPT/HCPCS: 70486

== ENCOUNTER 2025-04-06 15:50 | Outpatient (CLI) | payer OTHER, SELFPAY ==
--- NOTE | 2025-04-06 15:53 | XR_ITS ---
FINAL REPORT CLINICAL HISTORY: Left Shoulder Pain FINDINGS: LEFT SHOULDER Two views were obtained. There is no fracture or dislocation. The joint spaces appear normal. No soft tissue abnormality is identified. IMPRESSION: No acute process. Reviewed, Interpreted and Dictated by John Patel MD Transcribed by Bridgette Lyn Authenticated and [facility]
== END 2025-04-06 23:59 | disposition home or self-care (01) ==
LOC: RAD 15:50
PROVIDERS: PCP Internal Medicine; Visit Provider Orthopaedic Surgery
DX: M25.512 Pain in left shoulder (principal)
CPT/HCPCS: 73030

== ENCOUNTER 2025-04-12 15:27 | Outpatient (CLI) | payer OTHER, SELFPAY ==
[2025-04-12 20:36] LABS: Coronavirus 19, PCR Not Detected (NotDetected); Influenza A, PCR Not Detected (NotDetected); Influenza B, PCR Not Detected (NotDetected)
== END 2025-04-12 23:59 | disposition home or self-care (01) ==
LOC: LAB.DROPOF 04-14 15:28
PROVIDERS: PCP Internal Medicine; Visit Provider Nurse Practitioner
DX: J02.9 Acute pharyngitis, unspecified (principal); J32.9 Chronic sinusitis, unspecified; R50.9 Fever, unspecified
CPT/HCPCS: 87631